=== PATIENT | female | born 1955 | race African-American/Black ===

== ENCOUNTER → 2018-01-20 | Day surgery (SDC) | payer OTHER ==
[~2018-01-20] MED LIST: AMLODIPINE BESYL5 MG PO; DEXAMETHASONE SOD PHOS 10 MG/1 ML VIAL ONE; DEXILANT60 MG PO; DIOVAN80 MG PO; FENTANYL CITRATE/PF 100MCG/2 ML INJ ONE; FLUTICASONE PRO16 GM; GABAPENTIN600 MG PO; HUMALOG MI100 UNIT/4 INJ; HUMALOG100 UNIT/1; IOPAMIDOL 200 MG/ML 20 ML VIAL IT ONE; JARDIANCE; JARDIANCE PO; KLOR-CON 1010 MEQ PO; LASIX40 MG PO; LIDOCAINE HCL 1% 30ML-PF VIAL ONE; METFORMIN HCL1000 MG PO; METOPROLOL SUCC25 MG PO; MIDAZOLAM HCL 2 MG/2 ML VIAL ONE; MONTELUKAST SOD10 MG PO; PREMARIN0.9 MG PO; PROPOFOL IV EMULSION 10 MG/ML 20 ML VIAL ONE; WELCHOL3.75 GM PO
--- OUTSIDE RECORDS SUMMARY | 2018-01-20 05:13 | XMS REPORT | Clinical Summary ---
Author Author [facility] Organization [facility] Address Unknown Phone Unavailable Care Team Providers Care Senior Account Executive Name Role Phone Fabricio Hagen MD PCP Allergies Active Allergy Reactions Severity Noted Date Comments Aspirin GI Intolerance 12/19/2017 Iodine Swelling 12/19/2017 Atorvastatin Swelling 12/19/2017 Current Medications Prescription Sig. Disp. Refills Start End Date Status Date estrogens, conjugated, Take 0.9 mg by mouth Active (PREMARIN) 0.9 MG tablet daily. Take daily for 21 days then do not take for 7 days. metFORMIN (GLUCOPHAGE) Take 1,000 mg by mouth 2 Active 1,000 mg tablet (two) times a day with meals. empagliflozin 10 mg Take 10 mg by mouth Active tablet tablet daily. insulin lispro (HumaLOG) Inject under the skin 3 Active 100 unit/mL injection (three) times a day before meals. fluticasone (FLONASE) 50 2 sprays by Each Nare Active mcg/actuation nasal spray route daily. acetaminophen-codeine Take 1-2 tablets by mouth 24 tablet 0 12/19/19 12/19/19 Discontin (TYLENOL WITH CODEINE #3) every 6 (six) hours as 18 18 ued 300-30 mg per tablet needed for moderate pain (cough) for up to 5 days. azithromycin (ZITHROMAX Take 2 tablets the first 6 tablet 0 12/19/19 12/23/19 Z-DOC) 250 MG tablet day, then 1 tablet daily 18 18 for 4 days. codeine-guaifenesin Take 10 mL by mouth 3 200 mL 0 12/19/19 (GUAIFENESIN AC) 10-100 (three) times a day as 18 18 mg/5 mL liquid needed for cough for up to 5 days. Active Problems Not on file Encounters Date Type Specialty Care Team Description 12/19/2017 Emergency Emergency Medicine Mani Chance Cough ( Primary Dx); MD Ju Upper respiratory tract infection, unspecified type; Fever, unspecified fever cause 02/21/2017 Hospital Emergency Medicine Physician, Emergency, Encounter Luis Alberto Cortés MD after 01/19/2017 Social History Tobacco Use Types Packs/Day Years Used Date Current Every Day Smoker Smokeless Tobacco: Never Used Alcohol Use Drinks/Week oz/Week Comments No Sex Assigned at Date Recorded Not on file Last Filed Vital Signs Vital Sign Reading Time Taken Blood Pressure 128/73 12/19/2017 9:55 AM CLIENT SERVICES ASSISTANT Pulse 75 12/19/2017 9:55 AM CLIENT SERVICES ASSISTANT Temperature 36.3 C (97.4 F) 12/19/2017 9:55 AM CLIENT SERVICES ASSISTANT Respiratory Rate 18 12/19/2017 9:55 AM CLIENT SERVICES ASSISTANT Oxygen Saturation 98% 12/19/2017 9:55 AM CLIENT SERVICES ASSISTANT Inhaled Oxygen - - Concentration Weight 116 kg (255 lb 11.7 oz) 12/19/2017 7:05 AM CLIENT SERVICES ASSISTANT Height 185.4 cm (6' 1") 12/19/2017 6:46 AM CLIENT SERVICES ASSISTANT Body Mass Index 33.74 12/19/2017 7:05 AM CLIENT SERVICES ASSISTANT Plan of Treatment Health Maintenance Due Date Last Done Comments PAP SMEAR 1974 COLONOSCOPY 2003 MAMMOGRAM 2003 ZOSTER VACCINE 2013 INFLUENZA VACCINE 06/01/2017 Results * XR Chest 1 Vw Portable (12/19/2017 8:37 AM) Specimen Performing Laboratory [facility] [address] [place] [address] Narrative EXAMINATION:XR CHEST 1 VW PORTABLE CLINICAL HISTORY:Chest Pain COMPARISON:September 26, 2016 IMPRESSION: 1.Cardiac regulating device. Heart size is at the upper limits normal. 2.Volume loss and vascular congestion has increased since prior exam. [facility]-[id number] Procedure Note Interface, Radiology Results Incoming - 12/19/2017 8:42 AM CLIENT SERVICES ASSISTANT EXAMINATION: XR CHEST 1 VW PORTABLE CLINICAL HISTORY: Chest Pain COMPARISON: September 26, 2016 IMPRESSION: 1. Cardiac regulating device. Heart size is at the upper limits normal. 2. Volume loss and vascular congestion has increased since prior exam. [facility]-[id number] * Blood culture, aerobic & anaerobic (12/19/2017 7:30 AM) Only the most recent of 2 results within the time period is included. Component Value Ref Range Blood culture isolate No growth after 5 days of incubation. Comment: Specimen Information Specimen Source: Blood Specimen Site: Hand, left Specimen Performing Laboratory Blood - Hand, left [facility] DEPARTMENT OF PATHOLOGY AND GENOMIC MEDICINE [address] [place] [address] * Respiratory pathogen panel (12/19/2017 7:25 AM) Component Value Ref Range Respiratory pathogen Positive for Influenza A/H3 virus panel Negative for all other pathogens tested: Negative for Adenovirus Negative for Coronavirus HKU1 Negative for Coronavirus NL63 Negative for Coronavirus 229E Negative for Coronavirus OC43 Negative for Human Metapneumovirus Negative for Rhinovirus/Enterovirus Negative for Influenza A Negative for Influenza A/H1 Negative for Influenza A/H1-2009 Negative for Influenza B Negative for Parainfluenza Virus 1 Negative for Parainfluenza Virus 2 Negative for Parainfluenza Virus 3 Negative for Parainfluenza Virus 4 Negative for Respiratory Syncytial Virus Negative for Bordetella pertussis Negative for Chlamydophila pneumoniae Negative for Mycoplasma pneumoniae This real-time PCR assay detects the presence of nucleic acids (RNA or DNA) for the respiratory pathogens listed. A result of "Not-detected" does not exclude the possibility of the presence of one or more pathogens at concentrations less than the detectable limits of the assa (A) Comment: Specimen Information Specimen Source: Nares Specimen Site: Not specified Specimen Performing Laboratory Nares - Not specified [facility] DEPARTMENT OF PATHOLOGY AND GENOMIC MEDICINE [address] [place] [address] * Estimated GFR (12/19/2017 7:25 AM) Only the most recent of 2 results within the time period is included. Component Value Ref Range GFR Non Af Amer 63 mL/min/1.73 m2 GFR Af Amer 76 mL/min/1.73 m2 Comment: Chronic kidney disease: <60 mL/min/1.73m2 Kidney failure: <15 mL/min/1.73m2 The estimated GFR is calculated from the IDMS-traceable Modification of Diet in Renal Disease Equation. The accuracy of the calculation is poor when the creatinine is normal. Calculated values >90 mL/min/1.73m2 are not reported. This equation has not been validated in children (<18 years), women, the elderly (>70 years), or ethnic groups other than Caucasians and Americans. Specimen Performing Laboratory Plasma specimen [facility] DEPARTMENT OF PATHOLOGY AND [facility] MEDICINE [address] [place] [address]. [address] [place] [address] * Troponin (12/19/2017 7:25 AM) Component Value Ref Range Troponin <0.300 0.000 - 0.300 ng/mL Comment: The diagnostic value of a single normal or non-diagnostic result is questionable. Serial samples at 2-6 hour intervals are required to rule out acute myocardial injury. Specimen Performing Laboratory Plasma specimen [facility] OF PATHOLOGY AND [facility] [address] [place] [address]. [address] [place] [address] * Partial thromboplastin time, activated (12/19/2017 7:25 AM) Component Value Ref Range PTT 31.7 23.0 - 36.0 sec Comment: PTT therapeutic range for unfractionated heparin is 66.0-112.0 seconds which corresponds to Anti-Xa 0.3-0.7 U/mL. The reference range has changed starting 04/01/2010 @12:00pm Specimen Performing Laboratory Blood [facility] PATHOLOGY AND [facility] [address] [place] [address]. [address] [place] [address] * Prothrombin time with INR (12/19/2017 7:25 AM) Component Value Ref Range Prothrombin time 13.7 12.0 - 15.0 sec INR 1.0 Comment: The International Normalized Ratio (INR) is a therapeutic monitoring tool for patients who are stable on oral anticoagulant therapy. An INR of 2.0-3.0 is suggested for deep vein thrombosis/pulmonary embolism. Specimen Performing Laboratory Blood [facility] PATHOLOGY AND [facility] [address] [place] [address]. [address] [place] [address] * CBC with platelet and differential (12/19/2017 7:25 AM) Only the most recent of 2 results within the time period is included. Component Value Ref Range WBC 5.4 4.5 - 11.0 k/uL RBC 4.51 4.20 - 5.50 M/uL HGB 12.9 (L) 14.0 - 18.0 g/dL HCT 39.2 37.0 - 47.0 % MCV 86.9 82.0 - 100.0 fL MCH 28.6 27.0 - 34.0 pg MCHC 32.9 31.0 - 37.0 g/dL RDW - SD 42.6 37.0 - 55.0 fL MPV 11.4 8.8 - 13.2 fL Platelet count 205 150 - 400 K/uL Nucleated RBC 0.00 /100 WBC Neutrophils 57.8 39.0 - 69.0 % Lymphocytes 23.4 (L) 25.0 - 45.0 % Monocytes 12.7 (H) 0.0 - 10.0 % Eosinophils 5.0 0.0 - 5.0 % Basophils 0.7 0.0 - 1.0 % Immature granulocytes 0.4Comment: "Immature granulocytes" 0.0 - 1.0 % (promyelocytes, myelocytes, metamyelocytes) Specimen Performing Laboratory Blood [facility] DEPARTMENT OF PATHOLOGY AND GENOMIC MEDICINE [address] [place] [address] * Influenza antigen (12/19/2017 7:25 AM) Component Value Ref Range Influenza antigen Negative for Influenza A/B antigen. Comment: Specimen Information Specimen Source: Nares Specimen Site: Left Specimen Performing Laboratory Nares - Left [facility] OF PATHOLOGY AND GENOMIC MEDICINE [address] [place] [address] * B natriuretic peptide (12/19/2017 7:25 AM) Component Value Ref Range BNP 83 0 - 100 pg/mL Specimen Performing Laboratory Blood [facility] DEPARTMENT OF PATHOLOGY AND GENOMIC MEDICINE [address] [place] [address] * Basic metabolic panel (12/19/2017 7:25 AM) Component Value Ref Range Sodium 142 135 - 148 mEq/L Potassium 3.7 3.5 - 5.0 mEq/L Chloride 102 99 - 109 mEq/L CO2 24 24 - 31 mEq/L Anion gap 16 (H) 7 - 15 mEq/L Comment: Starting from January , anion gap calculation no longer incorporates potassium. Please note the change. BUN 8 8 - 24 mg/dL Creatinine 0.9 0.5 - 1.5 mg/dL Glucose 112 (H) 65 - 99 mg/dL Calcium 9.1 8.6 - 10.6 mg/dL Specimen Performing Laboratory Plasma specimen [facility] DEPARTMENT OF PATHOLOGY AND GENOMIC MEDICINE [address] [place] [address] * ECG 12 lead (12/19/2017 7:16 AM) Component Value Ref Range Ventricular rate 82 Atrial rate 82 CA interval 148 QRSD interval 86 QT interval 394 QTC interval 460 P axis 1 50 QRS axis 1 -18 T wave axis 26 EKG impression Sinus rhythm with occasional premature ventricular complexes-Otherwise normal ECG-In automated comparison with ECG of 26-SEP-2016 17:52,-Sinus rhythm has replaced Electronic atrial pacemaker- Specimen Performing Laboratory [facility] [address] [place] [address] * ECG ED Preliminary Interpretation - NOT AN ORDER (12/19/2017 7:02 AM) Narrative Chance Singleton MD 12/19/20174:16 PM ECG ED Preliminary Interpretation - Not an Order Performed by: CHANCE SINGLETON Authorized by: CHANCE SINGLETON ECG reviewed by ED Physician in the absence of a lacquerer: yes Previous ECG: Previous ECG:Unavailable Interpretation: Interpretation: normal Rate: ECG rate:82 Rhythm: Rhythm: sinus rhythm ST segments: ST segments:Normal T waves: T waves: normal * CT Abdomen Pelvis Wo Contrast (02/21/2017 3:49 PM) Specimen Performing Laboratory [facility] [address] [place] [address] Narrative EXAMINATION:CT ABDOMEN WO PELVIS WO CLINICAL HISTORY:Abdominal pain, nausea/vomiting COMPARISON:None. TECHNIQUE: Multiple axial CT images of the Abdomen and pelvis were obtained Without IV contrast limiting evaluation . Sagittal and coronal reconstructions were done. Radiation dose reduction technique used for this study. CT imaging was performed with iterative reconstruction technique and/or automated exposure control to reduce radiation dose. FINDINGS: HEPATOBILIARY:Unremarkable within the limitations of a noncontrast exam. GALLBLADDER: Normal. SPLEEN:No splenomegaly. PANCREAS:Unremarkable within the limitations of a noncontrast exam. ADRENALS:No adrenal nodules. KIDNEYS:There are no obstructing stones, hydronephrosis, or perinephric inflammatory changes. PERITONEUM/RETROPERITONEUM:No free air or fluid. No lymphadenopathy. ABDOMINAL AORTA/IVC: No signs of aneurysm. GI TRACT:Visualized portions of the bowel demonstrate no distention or wall thickening. The appendix is normal. PELVIC ORGANS/BLADDER:Urinary bladder is partially fluid-filled. The uterus and ovaries are absent. BONES AND SOFT TISSUES:No acute abnormality. VISUALIZED LOWER CHEST: There is some subpleural groundglass opacities in the right lower lobe medially could be related to some degree of atelectasis. Heart is enlarged. IMPRESSION: No acute abnormality. [id number] Procedure Note Interface, Radiology Conversion - 02/21/2017 3:59 PM CDT EXAMINATION: CT ABDOMEN WO PELVIS WO CLINICAL HISTORY: Abdominal pain, nausea/vomiting COMPARISON: None. TECHNIQUE: Multiple axial CT images of the Abdomen and pelvis were obtained Without IV contrast limiting evaluation . Sagittal and coronal reconstructions were done. Radiation dose reduction technique used for this study. CT imaging was performed with iterative reconstruction technique and/or automated exposure control to reduce radiation dose. FINDINGS: HEPATOBILIARY: Unremarkable within the limitations of a noncontrast exam. GALLBLADDER: Normal. SPLEEN: No splenomegaly. PANCREAS: Unremarkable within the limitations of a noncontrast exam. ADRENALS: No adrenal nodules. KIDNEYS: There are no obstructing stones, hydronephrosis, or perinephric inflammatory changes. PERITONEUM/RETROPERITONEUM: No free air or fluid. No lymphadenopathy. ABDOMINAL AORTA/IVC: No signs of aneurysm. GI TRACT: Visualized portions of the bowel demonstrate no distention or wall thickening. The appendix is normal. PELVIC ORGANS/BLADDER: Urinary bladder is partially fluid-filled. The uterus and ovaries are absent. BONES AND SOFT TISSUES: No acute abnormality. VISUALIZED LOWER CHEST: There is some subpleural groundglass opacities in the right lower lobe medially could be related to some degree of atelectasis. Heart is enlarged. IMPRESSION: No acute abnormality. [id number] * Urinalysis, automated with microscopy (02/21/2017 3:30 PM) Component Value Ref Range Color, UA Yellow YELLOW Appearance, UA Clear Clear Specific gravity, UA 1.029 1.005 - 1.030 pH, UA 5.5 5.0 - 8.0 Protein, UA Negative Negative Glucose, UA 3+ (A) Negative Ketones, UA Negative Negative Bilirubin, UA Negative Negative Blood, UA Negative Negative Nitrite, UA Negative NEGATIVE Urobilinogen, UA <2.0 <2.0 E.U./dL Leukocyte esterase, UA Negative Negative Epithelial cells, UA 2 0 - 15 /HPF WBC, UA <1 0 - 5 /Hpf RBC, UA 3 0 - 5 /HPF Bacteria, UA None seen None seen Yeast, UA None seen None Seen Yeast with pseudohyphae, None seen UA Specimen Performing Laboratory [facility] DEPARTMENT OF PATHOLOGY AND GENOMIC MEDICINE [address] [place] [address]. [address] [place] [address] * Lipase level (02/21/2017 2:23 PM) Component Value Ref Range Lipase 17 (L) 23 - 300 U/L Specimen Performing Laboratory [facility] DEPARTMENT OF PATHOLOGY AND GENOMIC MEDICINE [address] [place] [address] * Comprehensive metabolic panel (02/21/2017 2:23 PM) Component Value Ref Range Sodium 140 135 - 148 mEq/L Potassium 4.2 3.5 - 5.0 mEq/L Chloride 101 99 - 109 mEq/L CO2 24 24 - 31 mEq/L Anion gap 15 7 - 15 mEq/L Comment: Starting from January , anion gap calculation no longer incorporates potassium. Please note the change. BUN 15 8 - 24 mg/dL Creatinine 0.9 0.5 - 1.5 mg/dL Glucose 147 (H) 65 - 99 mg/dL Calcium 9.3 8.6 - 10.6 mg/dL Protein 6.9 6.3 - 8.2 g/dL Albumin 3.6 3.5 - 5.0 g/dL A/G ratio 1.09 0.70 - 3.80 Alkaline phosphatase 75 30 - 115 U/L AST 50 (H) 15 - 46 U/L ALT 38 10 - 55 U/L Total bilirubin 0.3 0.2 - 1.2 mg/dL Specimen Performing Laboratory [facility] DEPARTMENT OF PATHOLOGY AND GENOMIC MEDICINE [address] [place] [address] after 01/19/2017 Insurance Payer Benefit Subscriber ID Type Phone Address Plan / Group HUMANA MEDICARE HUMANA xxxxxxxxx PPO MEDICARE PPO/PFFS/E [facility]
--- OUTSIDE RECORDS SUMMARY | 2018-01-20 05:13 | XMS REPORT | Summary of Care ---
Author Author SHAMIR Herring, ADRIANO Organization Unknown Address Unknown Phone Unavailable Care Team Providers Care Personal Lines Account Executive Name Role Phone SHAMIR Herring, ADRIANO Unavailable Unavailable SHAMIR LAU NM, ADRIANO Unavailable Unavailable ANIBAL LAU NM, LINWOOD Luevano Unavailable Unavailable Unavailable Unavailable Functional Status Name Dates Details Functional status health issues are not documented Status: Name Dates Details Cognitive status health issues are not documented Status: Problems Name Dates Details Hypercholesteremia (272.0, E78.00) Status: Active Essential hypertension (401.9, I10) Status: Active Diabetes type 2, uncontrolled (250.02, E11.65) Status: Active Insulin pump fitting or adjustment (V53.91, Z46.81) Status: Active Medications Name Dates Details Dexilant 30 MG Oral Capsule Delayed Release * Start : 15-Mar-2017 Active HumaLOG 100 UNIT/ML Subcutaneous Solution use via insulin pump. Using upto 150 units daily * Quantity: 5 Refills: 9 ADRIANO BARKSDALE M.D. * Start : 15-Mar-2017 Active 10 ML Vial MetFORMIN HCl - 1000 MG Oral Tablet TAKE 1 TABLET TWICE DAILY WITH MEALS. * Quantity: 180 Refills: 3 ADRIANO BARKSDALE M.D. * Start : 15-Mar-2017 Active Jardiance 10 MG Oral Tablet TAKE 1 TABLET BY MOUTH ONCE DAILY * Quantity: 30 Refills: 11 ADRIANO BARKSDALE M.D. * Start : 15-Mar-2017 Active Fluticasone Propionate 50 MCG/ACT Nasal Suspension USE 1 SPRAY IN EACH NOSTRIL ONCE DAILY. * Refills: 0 * Start : 15-Mar-2017 Active 9.9 ML Bottle Dexilant 60 MG Oral Capsule Delayed Release TAKE 1 CAPSULE DAILY EVERY MORNING BEFORE BREAKFAST. * Refills: 0 * Start : 15-Mar-2017 Active Montelukast Sodium 10 MG Oral Tablet * Refills: 0 * Start : 15-Mar-2017 Active 30 Tablet Pack HumaLOG KwikPen 100 UNIT/ML Subcutaneous Solution Pen-injector use when insulin pump malfunctions. Using upto 50 units daily * Quantity: 5 Refills: 11 SHAMIR Herring, OSSAMA * Start : 15-Mar-2017 Active 3 ML Pen Gabapentin 600 MG Tab (OR) - 61185_Deactivated * Refills: 0 Active Centrum Cardio TABS * Refills: 0 Active Metoprolol Succinate ER 25 MG Oral Tablet Extended Release 24 Hour * Refills: 0 Active AmLODIPine Besylate 5 MG Oral Tablet * Refills: 0 Active Diclofenac Sodium 1 % Transdermal Gel * Refills: 0 Active Vitamin D3 1000 UNIT Oral Capsule * Refills: 0 Active Welchol 3.75 GM Oral Packet * Refills: 0 Active Premarin 0.9 MG Oral Tablet * Refills: 0 Active Furosemide 40 MG Oral Tablet TAKE 1 TABLET DAILY DIRECTED. * Quantity: 30 Refills: 0 ADRIANO BARKSDALE M.D. Active Insupen Ultrafin 31G X 6 MM 3 times daily for 90 days * Quantity: 270 Refills: 3 ADRIANO BARKSDALE M.D. * Start : 13-May-2017 Active Allergies and Adverse Reactions Name Dates Details Adhesive Tape TAPE (Allergy) Status: Active ASA/Extra Strength Antacid TABS (Allergy) Status: Active Iodine Tincture SWAB (Allergy) Status: Active Past Medical History Name Dates Details History of High blood pressure (401.9, I10) Status: Resolved History of TIA (transient ischemic attack) (435.9, G45.9) Status: Resolved Procedures Procedure Dates Details [[facility]] HEMOGLOBIN A1c Date: 26-Nov-2017 [[facility]] CMP W/EGFR Date: 26-Nov-2017 [[facility]] Hemoglobin and Hematocrit Date: 26-Nov-2017 History of Lower Back Surgery Lumbar Disc Completed Immunization Name Dates Details Immunizations not documented Social History Name Dates Details - Status: Name Dates Details Unknown if ever smoked Vital Signs Date Test Result Details [id number] BP Systolic 154 mm[Hg] Status: Comments: Location: LUE; Position: Sitting BP Diastolic 91 mm[Hg] Status: Comments: Location: LUE; Position: Sitting Height 73 in Status: Weight 269.5 lb Status: Body Mass Index Calculated 35.56 kg/m2 Status: Body Surface Area Calculated 2.44 m2 Status: Temperature 97.6 f Status: Comments: Method: Tympanic Heart Rate 86 /min Status: O2 SAT 99 % Status: Comments: Source: RA Results Date Description Value Details Results not documented Plan of Care Name Dates Details Planned Observations Planned Goals not documented Planned Encounters Appointment; ADRIANO BARKSDALE M.D. On: 24-Dec-2017 10:00 Interventions Provided Labs/Procedures/Imaging* [[facility]] CMP W/EGFR; To Be Done: 26 Nov 2017 * [[facility]] HEMOGLOBIN A1c; To Be Done: 26 Nov 2017 * [[facility]] Hemoglobin and Hematocrit; To Be Done: 26 Nov 2017 Discussion/Summary* Uncontrolled Type 2 diabetes mellitus: * - Uncontrolled due to lows * - Discussed diabetes management with insulin and need to titrate medications * - Discussed role of diet change * - Discussed role of exercise and effect on insulin resistance * - Discussed at length diabetes complications, glucose monitoring, importance of glycemic control, food and effects on glycemia, and importance of medication adherence. * - update labs * Insulin pump adjustment: * Change midnight basal rate to 2.1 units per hour and re-evaluate * The total time spent seeing the patient face to face in consultation, and formulating an action plan for this visit was 15 minutes. > than 50% of this time was spent counseling, discussing problems documented above, coordinating care and answering questions by the physician. * This note was dictated using voice recognition software. Please excuse any unusual errors and consider the limitations of voice recognition software in the interpretation of these records. Instructions Name Dates Details Instructions not documented Encounters Appointment; ADRIANO BARKSDALE M.D. Encounter Diagnosis: Problem not documented On: 15-Mar-2017 8:20 Appointment; ADRIANO BARKSDALE M.D. Encounter Diagnosis: Problem not documented On: 19-Apr-2017 9:20 Appointment; NIYAH SOLO RD Encounter Diagnosis: Problem not documented On: 13-May-2017 8:30 Appointment; ADRIANO BARKSDALE M.D. Encounter Diagnosis: Problem not documented On: 18-Jun-2017 9:20 Appointment; ADRIANO BARKSDALE M.D. Encounter Diagnosis: Problem not documented On: 30-Aug-2017 9:40 Appointment; ADRIANO BARKSDALE M.D. Encounter Diagnosis: Problem not documented On: 26-Nov-2017 10:00
== END | disposition home or self-care (01) ==
LOC: OR 05:11
PROVIDERS: ATTEND Physical Medicine & Rehabilitation Pain Medicine
DX: M54.12 Radiculopathy, cervical region (principal); M54.16 Radiculopathy, lumbar region; M96.1 Postlaminectomy syndrome, not elsewhere classified; M47.812 Spondylosis without myelopathy or radiculopathy, cervical region; Z98.1 Arthrodesis status; M46.1 Sacroiliitis, not elsewhere classified; G89.4 Chronic pain syndrome; M25.562 Pain in left knee; M75.01 Adhesive capsulitis of right shoulder; E11.9 Type 2 diabetes mellitus without complications; I10 Essential (primary) hypertension; K21.9 Gastro-esophageal reflux disease without esophagitis; Z88.6 Allergy status to analgesic agent; Z88.8 Allergy status to other drugs, medicaments and biological substances; Z91.048 Other nonmedicinal substance allergy status; Z79.4 Long term (current) use of insulin; Z95.0 Presence of cardiac pacemaker; Z91.81 History of falling
CPT/HCPCS: 64479; 64480; 93005; J1100; J2001; J2250; Q9966; 77003

== ENCOUNTER → 2021-05-01 | Day surgery (SDC) | payer MEDICARE, OTHER ==
[2021-04-29 14:31] LABS: BASOPHILS % 0.7 % (0.0-1.0); EOSINOPHILS # (AUTO) 0.2 (0.0-0.4); EOSINOPHILS % 3.7 % (0.0-6.0); HEMATOCRIT 37.4 % (34.2-44.1); HEMOGLOBIN 12.5 g/dL (12.0-16.0); LYMPHOCYTES # (AUTO) 2.2 (1.0-3.2); MEAN CORPUSCULAR HEMOGLOBIN 29.1 pg (28-32); MEAN CORPUSCULAR HGB CONC 33.4 g/dL (31-35); MEAN CORPUSCULAR VOLUME 87.2 fL (81-99); MONOCYTES # (AUTO) 0.5 (0.2-0.8); MONOCYTES % 8.9 % (4.4-11.3); NEUTROPHILS # (AUTO) 2.9 (2.1-6.9); NEUTROPHILS % 49.2 % (38.7-80.0); PLATELET COUNT 202 x10e3/uL (140-360); RED BLOOD COUNT 4.29 x10e6/uL (3.6-5.1); RED CELL DISTRIBUTION WIDTH 13.1 % (11.7-14.4)
[~2021-05-01] MED LIST changes: +CENTRUM ADULTS1 EACH PO; +FLECTOR1 EACH TOP; +FUROSEMIDE40 MG PO; -IOPAMIDOL 200 MG/ML 20 ML VIAL IT ONE; +KRILL OIL500 MG PO; +LIDOPATCH1 EACH TOP; +LUMIGAN2.5 M1 OU; +POVIDONE IODINE 0.05% 0.05 % ML PO ONE; +PRAVASTATIN SOD20 MG PO; +VASOTEC10 M1 PO; +VITAMIN E400 UNI1 PO; +WELCHOL625 MG PO
[2021-05-01 07:30] VITALS: BP 132/80
== END | disposition home or self-care (01) ==
LOC: OR 05:25
PROVIDERS: ATTEND Physical Medicine & Rehabilitation Pain Medicine
DX: M54.12 Radiculopathy, cervical region (principal); M54.16 Radiculopathy, lumbar region; M47.812 Spondylosis without myelopathy or radiculopathy, cervical region; M96.1 Postlaminectomy syndrome, not elsewhere classified; Z98.1 Arthrodesis status; M46.1 Sacroiliitis, not elsewhere classified; G89.4 Chronic pain syndrome; M25.562 Pain in left knee; M79.601 Pain in right arm; M19.90 Unspecified osteoarthritis, unspecified site; I69.80 Unspecified sequelae of other cerebrovascular disease; R53.1 Weakness; I25.10 Atherosclerotic heart disease of native coronary artery without angina pectoris; I10 Essential (primary) hypertension; E78.5 Hyperlipidemia, unspecified; K21.9 Gastro-esophageal reflux disease without esophagitis; E11.40 Type 2 diabetes mellitus with diabetic neuropathy, unspecified; E78.00 Pure hypercholesterolemia, unspecified; R42 Dizziness and giddiness; Z88.8 Allergy status to other drugs, medicaments and biological substances; Z88.6 Allergy status to analgesic agent; Z91.041 Radiographic dye allergy status; Z01.810 Encounter for preprocedural cardiovascular examination; Z01.812 Encounter for preprocedural laboratory examination; Z20.822 Contact with and (suspected) exposure to COVID-19; Z79.4 Long term (current) use of insulin; Z96.82 Presence of neurostimulator; Z95.0 Presence of cardiac pacemaker
CPT/HCPCS: 36415 ×2; 64479; 82948; 85025; 93005; J1100; J2001; J2250; J2704; J3010; U0002; 77003

== ENCOUNTER → 2021-05-29 | Day surgery (SDC) | payer MEDICARE, OTHER ==
[~2021-05-29] MED LIST changes: +B COMPLEX1 EACH PO; +CINNAMON500 MG PO; -FENTANYL CITRATE/PF 100MCG/2 ML INJ ONE; +FLAXSEED1000 MG PO; -MIDAZOLAM HCL 2 MG/2 ML VIAL ONE; +VITAMIN A10000 UNIT PO
[2021-05-29 08:10] VITALS: BP 146/73
== END | disposition home or self-care (01) ==
LOC: OR 05:51
PROVIDERS: ATTEND Physical Medicine & Rehabilitation Pain Medicine
DX: M54.12 Radiculopathy, cervical region (principal); E11.42 Type 2 diabetes mellitus with diabetic polyneuropathy; I10 Essential (primary) hypertension; M54.16 Radiculopathy, lumbar region; G89.4 Chronic pain syndrome; Z91.041 Radiographic dye allergy status; Z88.8 Allergy status to other drugs, medicaments and biological substances; Z91.048 Other nonmedicinal substance allergy status; Z95.0 Presence of cardiac pacemaker; Z01.810 Encounter for preprocedural cardiovascular examination; Z01.812 Encounter for preprocedural laboratory examination; Z20.822 Contact with and (suspected) exposure to COVID-19; Z79.4 Long term (current) use of insulin; Z86.73 Personal history of transient ischemic attack (TIA), and cerebral infarction without residual deficits
CPT/HCPCS: 36415; 64479; 64480; 82948; J1100; J2001; J2704; U0002; 77003

== ENCOUNTER → 2021-09-11 | Day surgery (SDC) | payer MEDICARE, OTHER ==
[2021-09-09 10:43] LABS: BASOPHILS # (AUTO) 0.1 (0.0-0.1); EOSINOPHILS # (AUTO) 0.3 (0.0-0.4); EOSINOPHILS % 4.2 % (0.0-6.0); HEMATOCRIT 40.5 % (34.2-44.1); HEMOGLOBIN 14.1 g/dL (12.0-16.0); LYMPHOCYTES % 33.1 % (18.0-39.1); MEAN CORPUSCULAR HEMOGLOBIN 29.9 pg (28-32); MEAN CORPUSCULAR HGB CONC 34.8 g/dL (31-35); MONOCYTES # (AUTO) 0.6 (0.2-0.8); MONOCYTES % 9.9 % (4.4-11.3); NEUTROPHILS # (AUTO) 3.2 (2.1-6.9); NEUTROPHILS % 51.3 % (38.7-80.0); PLATELET COUNT 198 x10e3/uL (140-360); RED BLOOD COUNT 4.71 x10e6/uL (3.6-5.1); RED CELL DISTRIBUTION WIDTH 12.5 % (11.7-14.4)
[~2021-09-11] MED LIST changes: +FARXIGA10 MG; +FENTANYL CITRATE/PF 100MCG/2 ML INJ ONE; +INSULIN REGULAR, HUMAN 100 UNIT/1 ML ONE; +MIDAZOLAM HCL 2 MG/2 ML VIAL ONE
[2021-09-11 07:30] VITALS: BP 125/83
== END | disposition home or self-care (01) ==
LOC: OR 05:54
PROVIDERS: ATTEND Physical Medicine & Rehabilitation Pain Medicine
DX: M54.12 Radiculopathy, cervical region (principal); G89.4 Chronic pain syndrome; M54.16 Radiculopathy, lumbar region; M96.1 Postlaminectomy syndrome, not elsewhere classified; Z98.1 Arthrodesis status; M75.01 Adhesive capsulitis of right shoulder; M25.562 Pain in left knee; M47.812 Spondylosis without myelopathy or radiculopathy, cervical region; I10 Essential (primary) hypertension; E78.5 Hyperlipidemia, unspecified; E11.9 Type 2 diabetes mellitus without complications; K21.9 Gastro-esophageal reflux disease without esophagitis; Z88.8 Allergy status to other drugs, medicaments and biological substances; Z88.6 Allergy status to analgesic agent; Z91.041 Radiographic dye allergy status; Z01.810 Encounter for preprocedural cardiovascular examination; Z01.812 Encounter for preprocedural laboratory examination; Z20.822 Contact with and (suspected) exposure to COVID-19; Z79.4 Long term (current) use of insulin; Z79.899 Other long term (current) drug therapy; Z95.0 Presence of cardiac pacemaker; Z86.73 Personal history of transient ischemic attack (TIA), and cerebral infarction without residual deficits
CPT/HCPCS: 36415 ×2; 64479; 64480; 77003; 82948; 85025; 93005; J1100; J2001; J2250; J2704; J3010; U0002; J1817

== ENCOUNTER → 2021-09-18 | Day surgery (SDC) | payer MEDICARE, OTHER ==
[~2021-09-18] MED LIST changes: -INSULIN REGULAR, HUMAN 100 UNIT/1 ML ONE
[2021-09-18 07:00] VITALS: BP 139/95
== END | disposition home or self-care (01) ==
LOC: OR 06:11
PROVIDERS: ATTEND Physical Medicine & Rehabilitation Pain Medicine
DX: M54.12 Radiculopathy, cervical region (principal); M47.812 Spondylosis without myelopathy or radiculopathy, cervical region; M54.16 Radiculopathy, lumbar region; G89.4 Chronic pain syndrome; M96.1 Postlaminectomy syndrome, not elsewhere classified; Z98.1 Arthrodesis status; M75.01 Adhesive capsulitis of right shoulder; M25.562 Pain in left knee; E11.40 Type 2 diabetes mellitus with diabetic neuropathy, unspecified; I25.10 Atherosclerotic heart disease of native coronary artery without angina pectoris; E78.5 Hyperlipidemia, unspecified; K21.9 Gastro-esophageal reflux disease without esophagitis; I10 Essential (primary) hypertension; Z88.6 Allergy status to analgesic agent; Z91.041 Radiographic dye allergy status; Z01.812 Encounter for preprocedural laboratory examination; Z20.822 Contact with and (suspected) exposure to COVID-19; Z79.4 Long term (current) use of insulin; Z79.899 Other long term (current) drug therapy; Z95.0 Presence of cardiac pacemaker; Z86.73 Personal history of transient ischemic attack (TIA), and cerebral infarction without residual deficits
CPT/HCPCS: 36415; 64479; 64480; 82948; J1100; J2001; J2250; J2704; J3010; U0002; 77003

== ENCOUNTER → 2021-11-05 | Outpatient (CLI) | payer MEDICARE, OTHER ==
[~2021-11-05] MED LIST changes: -DEXAMETHASONE SOD PHOS 10 MG/1 ML VIAL ONE; -FENTANYL CITRATE/PF 100MCG/2 ML INJ ONE; -LIDOCAINE HCL 1% 30ML-PF VIAL ONE; -MIDAZOLAM HCL 2 MG/2 ML VIAL ONE; -POVIDONE IODINE 0.05% 0.05 % ML PO ONE; -PROPOFOL IV EMULSION 10 MG/ML 20 ML VIAL ONE
== END ==
LOC: CT 07:39
PROVIDERS: ATTEND Physical Medicine & Rehabilitation Pain Medicine
DX: M54.12 Radiculopathy, cervical region (principal)
CPT/HCPCS: 72125

== ENCOUNTER → 2021-11-27 | Day surgery (SDC) | payer MEDICARE, OTHER ==
[2021-11-25 10:10] LABS: BASOPHILS # (AUTO) 0.1 (0.0-0.1); BASOPHILS % 0.7 % (0.0-1.0); EOSINOPHILS # (AUTO) 0.3 (0.0-0.4); EOSINOPHILS % 3.6 % (0.0-6.0); HEMATOCRIT 43.9 % (34.2-44.1); HEMOGLOBIN 14.4 g/dL (12.0-16.0); LYMPHOCYTES % 28.2 % (18.0-39.1); MEAN CORPUSCULAR HEMOGLOBIN 29.6 pg (28-32); MEAN CORPUSCULAR HGB CONC 32.8 g/dL (31-35); MEAN CORPUSCULAR VOLUME 90.1 fL (81-99); MONOCYTES # (AUTO) 0.7 (0.2-0.8); MONOCYTES % 9.5 % (4.4-11.3); NEUTROPHILS % 57.6 % (38.7-80.0); PLATELET COUNT 202 x10e3/uL (140-360); RED BLOOD COUNT 4.87 x10e6/uL (3.6-5.1)
[~2021-11-27] MED LIST changes: +ACETAMINOPHEN 1000 MG/100 ML 100 ML IV ONE; +DEXAMETHASONE SOD PHOS 10 MG/1 ML VIAL ONE; -FARXIGA10 MG; +FARXIGA10 MG PO; +FENTANYL CITRATE/PF 100MCG/2 ML INJ ONE; +KETOROLAC TROMETHAMINE 30 MG/ML VIAL ONE; +LIDOCAINE HCL 1% 30ML-PF VIAL ONE; +LIDOCAINE HCL 2% LOCAL INJ 5 ML SDV VIAL INJ ONE; +MIDAZOLAM HCL 2 MG/2 ML VIAL ONE; +POVIDONE IODINE 0.05% 0.05 % ML PO ONE; +PROPOFOL IV EMULSION 10 MG/ML 20 ML VIAL ONE
[2021-11-27 13:00] VITALS: BP 136/78
== END | disposition home or self-care (01) ==
LOC: OR 06:14
PROVIDERS: ATTEND Physical Medicine & Rehabilitation Pain Medicine
DX: M54.12 Radiculopathy, cervical region (principal); M54.16 Radiculopathy, lumbar region; M47.812 Spondylosis without myelopathy or radiculopathy, cervical region; G89.4 Chronic pain syndrome; M96.1 Postlaminectomy syndrome, not elsewhere classified; M46.1 Sacroiliitis, not elsewhere classified; M75.01 Adhesive capsulitis of right shoulder; M25.562 Pain in left knee; E11.40 Type 2 diabetes mellitus with diabetic neuropathy, unspecified; I10 Essential (primary) hypertension; E78.00 Pure hypercholesterolemia, unspecified; I25.10 Atherosclerotic heart disease of native coronary artery without angina pectoris; K21.9 Gastro-esophageal reflux disease without esophagitis; R42 Dizziness and giddiness; Z88.8 Allergy status to other drugs, medicaments and biological substances; Z88.6 Allergy status to analgesic agent; Z91.041 Radiographic dye allergy status; Z01.812 Encounter for preprocedural laboratory examination; Z20.822 Contact with and (suspected) exposure to COVID-19; Z79.4 Long term (current) use of insulin; Z79.899 Other long term (current) drug therapy; Z95.810 Presence of automatic (implantable) cardiac defibrillator; Z96.41 Presence of insulin pump (external) (internal)
CPT/HCPCS: 36415 ×2; 64479; 64480; 82948; 85025; J0131; J1100; J1885; J2001 ×2; J2250; J2704; J3010; U0002; 77003

== ENCOUNTER → 2021-12-11 | Day surgery (SDC) | payer MEDICARE, OTHER ==
[~2021-12-11] MED LIST changes: -ACETAMINOPHEN 1000 MG/100 ML 100 ML IV ONE; -KETOROLAC TROMETHAMINE 30 MG/ML VIAL ONE
[2021-12-11 07:10] VITALS: BP 135/71
== END | disposition home or self-care (01) ==
LOC: OR 05:55
PROVIDERS: ATTEND Physical Medicine & Rehabilitation Pain Medicine
DX: M54.12 Radiculopathy, cervical region (principal); G89.4 Chronic pain syndrome; M47.812 Spondylosis without myelopathy or radiculopathy, cervical region; M54.16 Radiculopathy, lumbar region; M96.1 Postlaminectomy syndrome, not elsewhere classified; Z98.1 Arthrodesis status; M25.562 Pain in left knee; E11.21 Type 2 diabetes mellitus with diabetic nephropathy; I10 Essential (primary) hypertension; E78.00 Pure hypercholesterolemia, unspecified; Z88.6 Allergy status to analgesic agent; Z91.041 Radiographic dye allergy status; Z88.8 Allergy status to other drugs, medicaments and biological substances; Z01.812 Encounter for preprocedural laboratory examination; Z20.822 Contact with and (suspected) exposure to COVID-19; Z01.810 Encounter for preprocedural cardiovascular examination; Z91.048 Other nonmedicinal substance allergy status; Z79.4 Long term (current) use of insulin; Z79.899 Other long term (current) drug therapy; Z95.0 Presence of cardiac pacemaker; Z96.41 Presence of insulin pump (external) (internal); Z91.81 History of falling
CPT/HCPCS: 36415; 62321; 82948; 93005; J1100; J2001 ×2; J2250; J2704; J3010; U0002; 77003

== ENCOUNTER → 2022-01-01 | Day surgery (SDC) | payer MEDICARE, OTHER ==
[2021-12-30 14:08] LABS: BASOPHILS # (AUTO) 0.1 (0.0-0.1); BASOPHILS % 0.7 % (0.0-1.0); EOSINOPHILS # (AUTO) 0.2 (0.0-0.4); HEMATOCRIT 38.5 % (34.2-44.1); HEMOGLOBIN 13.1 g/dL (12.0-16.0); LYMPHOCYTES # (AUTO) 2.1 (1.0-3.2); LYMPHOCYTES % 30.1 % (18.0-39.1); MEAN CORPUSCULAR HEMOGLOBIN 29.9 pg (28-32); MEAN CORPUSCULAR VOLUME 87.9 fL (81-99); MONOCYTES # (AUTO) 0.7 (0.2-0.8); MONOCYTES % 10.3 % (4.4-11.3); NEUTROPHILS # (AUTO) 3.9 (2.1-6.9); NEUTROPHILS % 55.6 % (38.7-80.0); PLATELET COUNT 195 x10e3/uL (140-360); RED BLOOD COUNT 4.38 x10e6/uL (3.6-5.1); RED CELL DISTRIBUTION WIDTH 13.4 % (11.7-14.4)
[~2022-01-01] MED LIST changes: -LIDOCAINE HCL 2% LOCAL INJ 5 ML SDV VIAL INJ ONE
[2022-01-01 09:30] VITALS: BP 140/81
== END | disposition home or self-care (01) ==
LOC: OR 06:28
PROVIDERS: ATTEND Physical Medicine & Rehabilitation Pain Medicine
DX: M54.12 Radiculopathy, cervical region (principal); M54.16 Radiculopathy, lumbar region; G89.4 Chronic pain syndrome; M96.1 Postlaminectomy syndrome, not elsewhere classified; M46.1 Sacroiliitis, not elsewhere classified; M75.01 Adhesive capsulitis of right shoulder; M25.562 Pain in left knee; I25.10 Atherosclerotic heart disease of native coronary artery without angina pectoris; I10 Essential (primary) hypertension; E11.40 Type 2 diabetes mellitus with diabetic neuropathy, unspecified; E66.9 Obesity, unspecified; E78.00 Pure hypercholesterolemia, unspecified; Z88.6 Allergy status to analgesic agent; Z91.041 Radiographic dye allergy status; Z88.8 Allergy status to other drugs, medicaments and biological substances; Z91.048 Other nonmedicinal substance allergy status; Z01.812 Encounter for preprocedural laboratory examination; Z20.822 Contact with and (suspected) exposure to COVID-19; Z79.4 Long term (current) use of insulin; Z79.899 Other long term (current) drug therapy; Z86.73 Personal history of transient ischemic attack (TIA), and cerebral infarction without residual deficits; Z95.810 Presence of automatic (implantable) cardiac defibrillator; Z91.81 History of falling; Z98.1 Arthrodesis status
CPT/HCPCS: 36415 ×2; 62321; 82948; 85025; J1100; J2001; J2250; J2704; J3010; U0002; 77003

== ENCOUNTER → 2022-03-05 | Day surgery (SDC) | payer MEDICARE, OTHER ==
[2022-03-04 10:46] LABS: BASOPHILS # (AUTO) 0.1 (0.0-0.1); BASOPHILS % 0.9 % (0.0-1.0); EOSINOPHILS # (AUTO) 0.2 (0.0-0.4); EOSINOPHILS % 3.8 % (0.0-6.0); HEMATOCRIT 41.4 % (34.2-44.1); HEMOGLOBIN 13.7 g/dL (12.0-16.0); LYMPHOCYTES % 34.5 % (18.0-39.1); MEAN CORPUSCULAR HEMOGLOBIN 29.8 pg (28-32); MEAN CORPUSCULAR HGB CONC 33.1 g/dL (31-35); MONOCYTES # (AUTO) 0.6 (0.2-0.8); MONOCYTES % 10.6 % (4.4-11.3); NEUTROPHILS # (AUTO) 2.9 (2.1-6.9); PLATELET COUNT 201 x10e3/uL (140-360); RED CELL DISTRIBUTION WIDTH 12.8 % (11.7-14.4)
[~2022-03-05] MED LIST changes: -FENTANYL CITRATE/PF 100MCG/2 ML INJ ONE; +INSULIN REGULAR, HUMAN 100 UNIT/1 ML ONE; +LIDOCAINE HCL 2% LOCAL INJ 5 ML SDV VIAL INJ ONE; -MIDAZOLAM HCL 2 MG/2 ML VIAL ONE
[2022-03-05 10:30] VITALS: BP 142/74
== END | disposition home or self-care (01) ==
LOC: OR 05:47
PROVIDERS: ATTEND Physical Medicine & Rehabilitation Pain Medicine
DX: M54.12 Radiculopathy, cervical region (principal); Z98.1 Arthrodesis status; M54.16 Radiculopathy, lumbar region; G89.4 Chronic pain syndrome; M96.1 Postlaminectomy syndrome, not elsewhere classified; M25.562 Pain in left knee; M47.812 Spondylosis without myelopathy or radiculopathy, cervical region; E11.40 Type 2 diabetes mellitus with diabetic neuropathy, unspecified; I10 Essential (primary) hypertension; Z88.6 Allergy status to analgesic agent; Z91.041 Radiographic dye allergy status; Z01.812 Encounter for preprocedural laboratory examination; Z20.822 Contact with and (suspected) exposure to COVID-19; Z79.4 Long term (current) use of insulin; Z79.899 Other long term (current) drug therapy; Z95.810 Presence of automatic (implantable) cardiac defibrillator; Z96.41 Presence of insulin pump (external) (internal)
CPT/HCPCS: 36415 ×2; 62321; 82948; 85025; J1100; J2001 ×2; J2704; U0002; 77003; J1817

== ENCOUNTER → 2022-04-02 | Day surgery (SDC) | payer MEDICARE, OTHER ==
[~2022-04-02] MED LIST changes: -DEXAMETHASONE SOD PHOS 10 MG/1 ML VIAL ONE; +FENTANYL CITRATE/PF 100MCG/2 ML INJ ONE; -INSULIN REGULAR, HUMAN 100 UNIT/1 ML ONE; +MIDAZOLAM HCL 2 MG/2 ML VIAL ONE; +TRIAMCINOLONE ACET 40 MG/ML VIAL ONE
[2022-04-02 09:25] VITALS: BP 157/89
== END | disposition home or self-care (01) ==
LOC: OR 06:00
PROVIDERS: ATTEND Physical Medicine & Rehabilitation Pain Medicine
DX: M47.892 Other spondylosis, cervical region (principal); M47.894 Other spondylosis, thoracic region; M54.12 Radiculopathy, cervical region; M54.16 Radiculopathy, lumbar region; G89.4 Chronic pain syndrome; M96.1 Postlaminectomy syndrome, not elsewhere classified; M46.1 Sacroiliitis, not elsewhere classified; M75.01 Adhesive capsulitis of right shoulder; M25.562 Pain in left knee; M19.90 Unspecified osteoarthritis, unspecified site; I10 Essential (primary) hypertension; E78.5 Hyperlipidemia, unspecified; E11.9 Type 2 diabetes mellitus without complications; K21.9 Gastro-esophageal reflux disease without esophagitis; R42 Dizziness and giddiness; Z88.6 Allergy status to analgesic agent; Z91.041 Radiographic dye allergy status; Z88.8 Allergy status to other drugs, medicaments and biological substances; Z91.048 Other nonmedicinal substance allergy status; Z01.812 Encounter for preprocedural laboratory examination; Z20.822 Contact with and (suspected) exposure to COVID-19; Z79.4 Long term (current) use of insulin; Z79.899 Other long term (current) drug therapy; Z98.1 Arthrodesis status; Z86.73 Personal history of transient ischemic attack (TIA), and cerebral infarction without residual deficits; Z95.0 Presence of cardiac pacemaker
CPT/HCPCS: 36415; 64490; 64491; 64492; 82948; J2001 ×2; J2250; J2704; J3010; J3301; U0002; 77003

== ENCOUNTER → 2024-08-16 | Day surgery (SDC) | payer MEDICARE, OTHER ==
[2024-08-10 12:40] LABS: BASOPHILS # (AUTO) 0.1 (0.0-0.1); BASOPHILS % 0.9 % (0.0-1.0); EOSINOPHILS # (AUTO) 0.2 (0.0-0.4); HEMATOCRIT 39.8 % (34.2-44.1); HEMOGLOBIN 13.3 g/dL (12.0-16.0); LYMPHOCYTES # (AUTO) 1.8 (1.0-3.2); LYMPHOCYTES % 32.6 % (18.0-39.1); MEAN CORPUSCULAR HEMOGLOBIN 30.4 pg (28-32); MEAN CORPUSCULAR HGB CONC 33.4 g/dL (31-35); MEAN CORPUSCULAR VOLUME 90.9 fL (81-99); MONOCYTES # (AUTO) 0.5 (0.2-0.8); MONOCYTES % 8.4 % (4.4-11.3); NEUTROPHILS % 54.9 % (38.7-80.0); PLATELET COUNT 191 x10e3/uL (140-360); RED BLOOD COUNT 4.38 x10e6/uL (3.6-5.1); RED CELL DISTRIBUTION WIDTH 12.5 % (11.7-14.4); WHITE BLOOD COUNT 5.37 x10e3/uL (4.8-10.8)
[~2024-08-16] MED LIST changes: +DEXAMETHASONE SOD PHOS 10 MG/1 ML VIAL ONE; -FENTANYL CITRATE/PF 100MCG/2 ML INJ ONE; +LYUMJEV KW100 UNIT/1 SC; -MIDAZOLAM HCL 2 MG/2 ML VIAL ONE; +PANTOPRAZOLE SO20 MG PO; -POVIDONE IODINE 0.05% 0.05 % ML PO ONE; +TOUJEO SOL300 UNIT/1 SC; -TRIAMCINOLONE ACET 40 MG/ML VIAL ONE
[2024-08-16] MEDS: LACTATED RINGER'S 1,000 ML ONE (07:18)
[2024-08-16 08:55] VITALS: BP 170/86; PULSE 72; RESP 16; O2SAT 99
== END | disposition home or self-care (01) ==
LOC: OR 06:36
PROVIDERS: ATTEND Physical Medicine & Rehabilitation Pain Medicine
DX: M54.12 Radiculopathy, cervical region (principal); M54.16 Radiculopathy, lumbar region; M47.814 Spondylosis without myelopathy or radiculopathy, thoracic region; M47.812 Spondylosis without myelopathy or radiculopathy, cervical region; G89.4 Chronic pain syndrome; M96.1 Postlaminectomy syndrome, not elsewhere classified; M25.562 Pain in left knee; E11.9 Type 2 diabetes mellitus without complications; I25.10 Atherosclerotic heart disease of native coronary artery without angina pectoris; I10 Essential (primary) hypertension; K21.9 Gastro-esophageal reflux disease without esophagitis; R42 Dizziness and giddiness; Z88.6 Allergy status to analgesic agent; Z91.041 Radiographic dye allergy status; Z88.8 Allergy status to other drugs, medicaments and biological substances; Z91.048 Other nonmedicinal substance allergy status; Z01.810 Encounter for preprocedural cardiovascular examination; Z01.812 Encounter for preprocedural laboratory examination; Z79.4 Long term (current) use of insulin; Z79.84 Long term (current) use of oral hypoglycemic drugs; Z79.899 Other long term (current) drug therapy; Z95.0 Presence of cardiac pacemaker
CPT/HCPCS: 36415; 64479; 64480; 85025; 93005; J1100; J2003 ×2; J2704; J7121; 77002

== ENCOUNTER → 2024-10-18 | Day surgery (SDC) | payer MEDICARE, OTHER ==
[2024-10-13 13:41] LABS: BASOPHILS # (AUTO) 0.1 (0.0-0.1); BASOPHILS % 0.9 % (0.0-1.0); EOSINOPHILS # (AUTO) 0.2 (0.0-0.4); HEMATOCRIT 43.4 % (34.2-44.1); HEMOGLOBIN 14.1 g/dL (12.0-16.0); LYMPHOCYTES # (AUTO) 2.1 (1.0-3.2); LYMPHOCYTES % 37.5 % (18.0-39.1); MEAN CORPUSCULAR HGB CONC 32.5 g/dL (31-35); MEAN CORPUSCULAR VOLUME 92.3 fL (81-99); MONOCYTES # (AUTO) 0.5 (0.2-0.8); MONOCYTES % 8.4 % (4.4-11.3); NEUTROPHILS # (AUTO) 2.7 (2.1-6.9); PLATELET COUNT 165 x10e3/uL (140-360); RED CELL DISTRIBUTION WIDTH 12.5 % (11.7-14.4); WHITE BLOOD COUNT 5.49 x10e3/uL (4.8-10.8)
[2024-10-13 14:12] LABS: ANION GAP 14.1 mmol/L (8-16); CALCIUM 10.1 mg/dL (8.4-10.2); CREATININE, SERUM 0.98 mg/dL (0.57-1.11); POTASSIUM 4.1 mmol/L (3.5-5.1)
[~2024-10-18] MED LIST changes: +BYSTOLIC5 MG PO; +CRESTOR40 MG PO; -DEXAMETHASONE SOD PHOS 10 MG/1 ML VIAL ONE; +FENTANYL CITRATE/PF 100MCG/2 ML INJ ONE; +FLONASE ALLERG9.9 ML INH; +GLIPIZIDE5 MG PO; +HYDRALAZINE HCL 20 MG/ML VIAL ONE; -LIDOCAINE HCL 1% 30ML-PF VIAL ONE; -LIDOCAINE HCL 2% LOCAL INJ 5 ML SDV VIAL INJ ONE; +MIDAZOLAM HCL 2 MG/2 ML VIAL ONE; +MISOPROSTOL100 MCG PO; -PROPOFOL IV EMULSION 10 MG/ML 20 ML VIAL ONE; +SUCRALFATE1 GM PO; +TIZANIDINE HCL4 M1 PO; +VENTOLIN HFA18 GM INH
[2024-10-18] MEDS: LACTATED RINGER'S 1,000 ML ONE (10:57)
[2024-10-18 12:34] VITALS: TEMP 97.6
[2024-10-18 13:35] VITALS: BP 150/70; PULSE 79; RESP 16; O2SAT 97
== END | disposition home or self-care (01) ==
LOC: OR 06:39
PROVIDERS: ATTEND Physical Medicine & Rehabilitation Pain Medicine
DX: M54.12 Radiculopathy, cervical region (principal); M47.812 Spondylosis without myelopathy or radiculopathy, cervical region; M54.16 Radiculopathy, lumbar region; M47.814 Spondylosis without myelopathy or radiculopathy, thoracic region; G89.4 Chronic pain syndrome; M96.1 Postlaminectomy syndrome, not elsewhere classified; Z98.1 Arthrodesis status; M46.1 Sacroiliitis, not elsewhere classified; M25.562 Pain in left knee; E11.40 Type 2 diabetes mellitus with diabetic neuropathy, unspecified; I10 Essential (primary) hypertension; E78.5 Hyperlipidemia, unspecified; K21.9 Gastro-esophageal reflux disease without esophagitis; Z88.6 Allergy status to analgesic agent; Z91.041 Radiographic dye allergy status; Z88.8 Allergy status to other drugs, medicaments and biological substances; Z79.84 Long term (current) use of oral hypoglycemic drugs; Z79.4 Long term (current) use of insulin; Z79.899 Other long term (current) drug therapy; Z96.41 Presence of insulin pump (external) (internal); Z95.0 Presence of cardiac pacemaker; Z86.73 Personal history of transient ischemic attack (TIA), and cerebral infarction without residual deficits
CPT/HCPCS: 36415; 64479; 64480; 71046; 80048; 85025; J0360; J2250; J3010; J7121; 77002